=== PATIENT | female | born 1975 | race Caucasian/White ===

== ENCOUNTER 2016-09-03 11:52 | Emergency (ER) | payer OTHER ==
[2016-09-03 12:00] VITALS: BP 160/80; PULSE 87; RESP 18; TEMP 98.5
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
[2016-09-03] MEDS ORDERED: HEPATITIS B VIRUS VAC-ADULT/PF 10 MCG/ML 1 ML VIAL IM ONE (13:39)
[2016-09-03 15:02] LABS: Hepatitis B Surface Ag Index 0.07
[2016-09-03 15:20] LABS: Hepatitis C Virus IgG Index 0.05
[2016-09-03 15:27] LABS: Hepatitis C Virus IgG Ab Negative (Negative)
[2016-09-06 18:05] LABS: HIV-1/HIV-2 Ab Screen NONREAC (NON REAC)
== END 2016-09-03 14:16 | disposition home or self-care (01) ==
LOC: EC 11:52
DX: S50.872A Other superficial bite of left forearm, initial encounter (principal); F17.200 Nicotine dependence, unspecified, uncomplicated; Z53.20 Procedure and treatment not carried out because of patient's decision for unspecified reasons; Z88.2 Allergy status to sulfonamides; W50.3XXA Accidental bite by another person, initial encounter; Y92.69 Other specified industrial and construction area as the place of occurrence of the external cause; Y99.0 Civilian activity done for income or pay
CPT/HCPCS: 36415; 86803; 87340; 87389; 99283

== ENCOUNTER → 2017-04-01 | Outpatient (CLI) | payer OTHER ==
--- NOTE | 2017-04-01 12:37 | XR ---
EXAMINATION TYPE: XR wrist complete LT, XR hand complete LT DATE OF EXAM: 04/01/2017 CLINICAL HISTORY: pain TECHNIQUE: Frontal, lateral and oblique images of the left hand are obtained. COMPARISON: None. FINDINGS: There is no acute fracture/dislocation evident. The joint spaces appear within normal limi ts. The overlying soft tissue appears unremarkable. IMPRESSION: There is no acute fracture or dislocation. ICD 10 NO FRACTURE, INITIAL EVALUATION EXAMINATION TYPE: XR wrist complete LT, XR hand complete LT DATE OF EXAM: 04/01/2017 CLINICAL HISTORY: pain TECHNIQUE: Frontal, lateral and oblique images of the left wrist are obtained. COMPARISON: None. FINDINGS: There is no acute fracture/dislocation evident. The joint spaces appear within normal henriquez its. The overlying soft tissue appears unremarkable. IMPRESSION: There is no acute fracture or dislocation seen. ICD 10 NO FRACTURE, INITIAL EVALUATION
== END | disposition home or self-care (01) ==
LOC: RADXRMAIN 12:19
PROVIDERS: ATTEND Emergency Medicine
DX: S60.222A Contusion of left hand, initial encounter (principal); S63.8X2A Sprain of other part of left wrist and hand, initial encounter

== ENCOUNTER → 2017-06-10 | Outpatient (CLI) | payer OTHER ==
--- NOTE | 2017-06-10 09:33 | XR ---
EXAMINATION TYPE: XR hand complete RT DATE OF EXAM: 06/10/2017 CLINICAL HISTORY: pain TECHNIQUE: Frontal, lateral and oblique images of the right hand are obtained. COMPARISON: None. FINDINGS: There is no acute fracture/dislocation evident. The joint spaces appear within normal limi ts. The overlying soft tissue appears unremarkable. IMPRESSION: There is no acute fracture or dislocation ICD 10 NO FRACTURE, INITIAL EVALUATION
== END | disposition home or self-care (01) ==
LOC: RADXRMAIN 09:09
PROVIDERS: ATTEND Emergency Medicine
DX: S60.221A Contusion of right hand, initial encounter (principal)

== ENCOUNTER 2018-07-14 11:43 | Emergency (ER) | payer OTHER ==
[2018-07-14 11:56] VITALS: RESP 18
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
--- NOTE | 2018-07-14 12:39 | CT ---
EXAMINATION TYPE: CT brain wo con DATE OF EXAM: 07/14/2018 COMPARISON: None HISTORY: Pain CT DLP: 1054.4 mGycm. Automated Exposure Control for Dose Reduction was Utilized. TECHNIQUE: CT scan of the head is performed without contrast. FINDINGS: There is no acute intracranial hemorrhage, mass effect, or midline shift identified. The ventricles and sulci are within normal limits in size. The globes are intact and the visualized sin uses are clear. IMPRESSION: No acute intracranial hemorrhage, mass effect, or midline shift is seen.
[2018-07-14 14:01] VITALS: BP 132/94; PULSE 93; TEMP 98.1
== END 2018-07-14 13:59 | disposition home or self-care (01) ==
LOC: EC 11:43
DX: S09.90XA Unspecified injury of head, initial encounter (principal); F41.9 Anxiety disorder, unspecified; F17.200 Nicotine dependence, unspecified, uncomplicated; Z88.2 Allergy status to sulfonamides; Z79.899 Other long term (current) drug therapy; Z86.79 Personal history of other diseases of the circulatory system; Y04.0XXA Assault by unarmed brawl or fight, initial encounter; Y92.211 Elementary school as the place of occurrence of the external cause; Y99.0 Civilian activity done for income or pay
CPT/HCPCS: 70450; 99283

== ENCOUNTER → 2019-04-27 | Outpatient (CLI) | payer OTHER ==
--- NOTE | 2019-04-27 17:04 | XR ---
EXAMINATION TYPE: XR hand complete RT DATE OF EXAM: 04/27/2019 COMPARISON: NONE HISTORY: Pain TECHNIQUE: 3 views FINDINGS: Metacarpals are intact. I see no fracture nor dislocation. Joint spaces are normal. IMPRESSION: Negative right hand exam.
--- NOTE | 2019-04-27 17:06 | XR ---
EXAMINATION TYPE: XR wrist complete LT DATE OF EXAM: 04/27/2019 COMPARISON: NONE HISTORY: Pain TECHNIQUE: 4 views FINDINGS: Carpal bones are intact. I see no fracture nor dislocation. There are no erosions. Joint sp aces are fairly normal. IMPRESSION: Negative right wrist exam.
== END | disposition home or self-care (01) ==
LOC: RADXRMAIN 16:41
PROVIDERS: ATTEND Emergency Medicine
DX: S60.221A Contusion of right hand, initial encounter (principal); S63.8X1A Sprain of other part of right wrist and hand, initial encounter

== ENCOUNTER → 2019-05-05 | Outpatient (CLI) | payer OTHER ==
--- NOTE | 2019-05-05 15:54 | XR ---
EXAMINATION TYPE: XR hand complete RT DATE OF EXAM: 05/05/2019 CLINICAL HISTORY: Painful third through fifth digits after fall one week ago. TECHNIQUE: Frontal, lateral and oblique images of the right hand are obtained. COMPARISON: 04/27/2019. FINDINGS: There is no acute fracture/dislocation evident in the right hand. The joint spaces in the right hand appear within normal limits. Incidentally noted mild negative ulnar variance. The overlyin g soft tissue appears unremarkable. IMPRESSION: There is no acute fracture or dislocation in the right hand.
== END | disposition home or self-care (01) ==
LOC: RADXRMAIN 15:27
PROVIDERS: ATTEND Emergency Medicine
DX: S60.221A Contusion of right hand, initial encounter (principal)

== ENCOUNTER → 2019-05-11 | Outpatient (CLI) | payer OTHER ==
--- NOTE | 2019-05-11 16:59 | XR ---
EXAMINATION TYPE: XR wrist complete RT DATE OF EXAM: 05/11/2019 COMPARISON: 06/03/2017 HISTORY: Pain TECHNIQUE: 4 views FINDINGS: Carpal bones appear intact. I see no fracture nor dislocation. Metacarpals are intact. Ther e are no erosions. IMPRESSION: Negative right wrist exam. No change.
== END | disposition home or self-care (01) ==
LOC: RADXRMAIN 16:41
PROVIDERS: ATTEND Emergency Medicine
DX: S63.8X1D Sprain of other part of right wrist and hand, subsequent encounter (principal)

== ENCOUNTER → 2021-02-15 | Outpatient (CLI) | payer BC ==
--- NOTE | 2021-02-15 15:20 | US ---
EXAMINATION TYPE: US carotid duplex BILAT DATE OF EXAM: 02/15/2021 COMPARISON: NONE CLINICAL HISTORY: 45-year-old female R09.89 carotid bruit. LEFT carotid bruit per patient. TECHNIQUE: Carotid duplex ultrasound examination. Indirect Doppler criteria was utilized. FINDINGS: EXAM MEASUREMENTS: RIGHT: Peak Systolic Velocity (PSV) cm/sec ----- Right CCA: 107.0 ----- Right ICA: 91.8 ----- Right ECA: 178.0 ICA/CCA ratio: 0.8 RIGHT: End Diastole cm/sec ----- Right CCA: 18.3 ----- Right ICA: 20.7 ----- Right ECA: 35.3 LEFT: Peak Systolic Velocity (PSV) cm/sec ----- Left CCA: 106.0 (proximal 167 cm/s) ----- Left ICA: 111.0 ----- Left ECA: 113.0 ICA/CCA ratio: 1.1 LEFT: End Diastole cm/sec ----- Left CCA: 28.1 ----- Left ICA: 39.9 ----- Left ECA: 24.5 VERTEBRALS (direction of flow): Right Vertebral: Antegrade Left Vertebral: Antegrade Rhythm: Normal V Belt Coverer notes: Elevated right ECA and left proximal CCA. No plaque or significant stenosis. IMPRESSION: 1. No hemodynamically significant internal carotid artery stenosis on either side. 2. Mildly elevated velocity within the left CCA probably turbulent flow. A mild to moderate stenosis at the vessel origin is the alternative possibility. Given the lack of any significant atheroscleroti c plaque/calcification at the carotid bifurcations, this is considered less likely. NASCET criteria was used in interpretation of this exam? Criteria for Assigning % of Stenosis / Diameter reduction (Estimation based on the indirect measurements of the internal carotid artery velocities (ICA PSV). 1. Normal (no stenosis)=ICA PSV < 125 cm/s: ratio < 2.0: ICA EDV<40 cm/s. 2. Less than 50% stenosis=ICA PSV < 125 cm/s: ratio < 2.0: ICA EDV<40 cm/s. 3. 50 to 69% stenosis=ICA PSV of 125 to 230 cm/s: ration 2.0 ? 4.0: ICA EDV 40-100 cm/s. 4. Greater than 70% stenosis to near occlusion= ICA PSV > 230 cm/s: ratio > 4.0: ICA EDV > 100 cm/s. 5. Near occlusion= ICA PSV velocities may be low or undetectable: variable ratio and ICA EDV. 6. Total occlusion=unable to detect flow.
== END | disposition home or self-care (01) ==
LOC: RADUSWWP 13:43
PROVIDERS: ATTEND Family Medicine
DX: R09.89 Other specified symptoms and signs involving the circulatory and respiratory systems (principal)
CPT/HCPCS: 93880

== ENCOUNTER → 2021-03-05 | Outpatient (CLI) | payer BC ==
--- NOTE | 2021-03-06 11:01 | ECHOF ---
Referral Reason:R09.89caratoid br, R01.1 MEASUREMENTS -------- HEIGHT: 162.6 cm WEIGHT: 67.6 kg BP: RVIDd: 2.3 cm (< 3.3) IVSd: 0.8 cm (0.6 - 1.1) LVIDd: 4.2 cm (3.9 - 5.3) LVPWd: 1.0 cm (0.6 - 1.1) IVSs: 1.9 cm LVIDs: 1.8 cm LVPWs: 1.7 cm LAESV Index (A-L): 19.13 ml/m Ao Diam: 2.3 cm (2.0 - 3.7) AV Cusp: 1.6 cm (1.5 - 2.6) LA Diam: 2.9 cm (2.7 - 3.8) MV EXCURSION: 13.369 mm (> 18.000) MV EF SLOPE: 87 mm/s (70 - 150) EPSS: 0.7 cm MV E Ishaan: 1.06 m/s MV DecT: 230 ms MV A Ishaan: 0.88 m/s MV E/A Ratio: 1.20 AV maxP.28 mmHg AV meanP.82 mmHg RAP: 5.00 mmHg RVSP: 20.56 mmHg FINDINGS -------- This was a technically good study. The left ventricular size is normal. Left ventricular wall thickness is normal. Overall left vent ricular systolic function is normal with, an EF between 55 - 60 %. The diastolic filling pattern is normal for the age of the patient 12.00. The right ventricle is normal in size. The left atrial size is normal. Normal LA size by volume 22+/-6 ml/m2. The right atrial size is normal. The aortic valve is trileaflet and appears structurally normal. Peak/mean gradient across the Aorti c Valve is 15.28mmHg / 7.82mmHg. The mitral valve is normal. There is trace mitral regurgitation. The tricuspid valve appears structurally normal. Trace tricuspid regurgitation present. Right neo tricular systolic pressure is normal at < 35 mmHg. There is no pulmonic regurgitation present. The aortic root size is normal. Normal inferior vena cava with normal inspiratory collapse consistent with estimated right atrial pre ssure of 5 mmHg. There is no pericardial effusion. CONCLUSIONS -------- 1. The left ventricular size is normal. 2. Left ventricular wall thickness is normal. 3. Overall left ventricular systolic function is normal with, an EF between 55 - 60 %. 4. The diastolic filling pattern is normal for the age of the patient 12.00 5. Peak/mean gradient across the Aortic Valve is 15.28mmHg / 7.82mmHg. 6. There is trace mitral regurgitation. 7. Trace tricuspid regurgitation present. 8. There is no pericardial effusion. [employer]PER[employer]: Mya Arrieta RDCS
== END | disposition home or self-care (01) ==
LOC: RADECHMAIN 13:17
PROVIDERS: ATTEND Family Medicine
DX: I08.1 Rheumatic disorders of both mitral and tricuspid valves (principal)
CPT/HCPCS: 93306

== ENCOUNTER → 2022-01-02 | Outpatient (CLI) | payer BC ==
[2022-01-02 18:34] LABS: Chol/HDL Ratio 3.81 Ratio; LDL Cholesterol,Calculated 170.7 mg/dL (0.0-131.0); VLDL Calculation 13.02 mg/dL (5.00-40.00)
== END | disposition home or self-care (01) ==
LOC: LABWHC1 11:41
PROVIDERS: ATTEND Family Medicine
DX: E78.5 Hyperlipidemia, unspecified (principal)
CPT/HCPCS: 36415; 80061

== ENCOUNTER → 2023-10-15 | Outpatient (CLI) | payer OTHER ==
--- NOTE | 2023-10-17 11:46 | MM ---
Reason for Exam: Hx of breast augmentation, asymptomatic. Patient History: Menarche at age 16. First Full-Term at age 19. Perimenopausal. Bilateral Implants. Risk Values: Keyana 5 year model risk: 0.6%. NCI Lifetime model risk: 6.3%. Prior Study Comparison: No prior studies available for comparison. Tissue Density: The breasts are heterogeneously dense, which may obscure small masses. Findings: Analyzed By CAD. There is no suspicious group of microcalcifications or new suspicious mass in either breast. Bilateral implants intact. Overall Assessment: Benign, BI-RAD 2 Management: Screening Mammogram of both breasts in 1 year. . Patient should continue monthly self-breast exams. A clinical breast exam by your physician is recommended on an annual basis. This exam should not preclude additional follow-up of suspicious palpable abnormalities. Note on Keyana scores and lifetime risk: 1. A Keyana score greater than 3% is considered moderate risk. If this is the case, consider specialist referral to assess eligibility for a risk reducing agent. 2. If overall lifetime risk for the development of breast cancer is 20% or higher, the patient may qualify for future screening with alternating mammogram and breast MRI. Electronically signed and approved by: Tico Peters M.D. Radiologis
== END | disposition home or self-care (01) ==
LOC: RADMAMWWP 11:08
PROVIDERS: ATTEND Family Medicine
DX: Z12.31 Encounter for screening mammogram for malignant neoplasm of breast (principal); Z98.82 Breast implant status
CPT/HCPCS: 77067

== ENCOUNTER → 2024-12-06 | Outpatient (CLI) | payer OTHER ==
--- NOTE | 2024-12-06 10:25 | MM ---
Reason for Exam: Screening (asymptomatic). Last mammogram was performed 1 year(s) and 2 month(s) ago. Patient History: Menarche at age 16. First Full-Term at age 19. Hysterectomy at age 27. Perimenopausal. Bilateral Implants. Risk Values: Keyana 5 year model risk: 0.6%. NCI Lifetime model risk: 6.2%. Prior Study Comparison: 10/15/2023 Bilateral MG screening mammo implant/CAD, [facility]. Tissue Density: The breasts are heterogeneously dense, which may obscure small masses. Findings: Analyzed By CAD. Redemonstrated prepectoral saline implants with partially calcified capsules. There is no suspicious group of microcalcifications or new suspicious mass in either breast. Overall Assessment: Benign, BI-RAD 2 Management: Screening Mammogram of both breasts in 1 year. Patient should continue monthly self-breast exams. A clinical breast exam by your physician is recommended on an annual basis. This exam should not preclude additional follow-up of suspicious palpable abnormalities. Note on Keyana scores and lifetime risk: 1. A Keyana score greater than 3% is considered moderate risk. If this is the case, consider specialist referral to assess eligibility for a risk reducing agent. 2. If overall lifetime risk for the development of breast cancer is 20% or higher, the patient may qualify for future screening with alternating mammogram and breast MRI. [facility], , 12/06/2024 10:22 AM. Electronically signed and approved by: Gabby Mullins M.D. Radiologist
== END | disposition home or self-care (01) ==
LOC: RADMAMWWP 09:54
PROVIDERS: ATTEND Family Medicine
DX: Z12.31 Encounter for screening mammogram for malignant neoplasm of breast (principal); R92.333 Mammographic heterogeneous density, bilateral breasts; Z98.82 Breast implant status
CPT/HCPCS: 77063; 77067